=== PATIENT | female | born 1980 | race Caucasian/White ===

== ENCOUNTER 2016-12-21 12:51 | Emergency (ER) | payer MEDICAID ==
[2016-12-21] MEDS ORDERED: LORazepam 2 MG/ML MDV ONE (13:34)
[2016-12-21] MEDS ORDERED: LORazepam 2 MG/ML MDV IM ONE (13:45)
--- NOTE | 2016-12-21 13:54 | EDM.PDOC ---
[id number] 4d ANXIETY ATTACH Time Seen by Provider: 12/21/16 13:15 Source of Information: Reports: Family History Limitations: Reports: Altered mental status, Language barrier - History of Present Illness INITIAL COMMENTS - FREE TEXT/NARRATIVE: 36-year-old female who is having a very significant anxiety attack after her children were at the dentist. She has significant panic attacks and anxiety when around any type of dental procedure. Her boyfriend brought her in and she was hyperventilating and unable to speak. Her vitals were stable. O2 saturations were 100%. Onset: sudden Severity: moderate Associated Symptoms: Reports: shortness of breath, weakness. Denies: cough, nausea/vomiting - Related Data Allergies Allergy/AdvReac Type Severity Reaction Status Date / Time sodium fluoride Allergy Severe Mouth Sores Verified 12/21/16 14:04 Home Meds: Home Meds . [No Known Home Meds] 12/21/16 [History] ED ROS GENERAL - Review of Systems Review Of Systems: Unable To Obtain (Patient was unable to speak due to intense panic) GI/Abdominal: Denies: Nausea, Vomiting Neurological: Reports: No Symptoms Psychiatric: Reports: Anxiety ED EXAM, GENERAL - Physical Exam Exam: See Below Exam Limited By: Altered mental status General Appearance: alert, anxious, moderate distress Respiratory/Chest: no respiratory distress Cardiovascular: regular rate, rhythm, tachycardia Extremities: No: pedal edema Neurological: alert Psychiatric: anxious Skin Exam: Warm, Dry Course - Vital Signs Last Recorded V/S: Last Vital Signs Temp 96.8 F 12/21/16 14:05 Pulse 92 12/21/16 14:05 Resp 16 12/21/16 14:05 BP 95/69 12/21/16 14:05 Pulse Ox 99 12/21/16 14:05 - Orders/Labs/Meds Meds: Medications Discontinued Medications Generic Name Dose Route Start Last Admin Trade Name Freq PRN Reason Stop Dose Admin Lorazepam Confirm 12/21/16 13:34 12/21/16 14:18 Ativan Administered 12/21/16 13:35 Not Given Dose 2 mg .ROUTE .STK-MED ONE Lorazepam 2 mg 12/21/16 13:45 12/21/16 14:15 Ativan IM 12/21/16 13:46 2 mg ONETIME ONE Administration - Re-Assessments/Exams Free Text/Narrative Re-Assessment/Exam: 12/21/16 13:52 2 mg of Ativan IM were given to the patient but even prior to the medication she was already starting to be able to speak. She'll be discharged when she feels well enough to go. Departure - Departure Time of Disposition: 14:19 Disposition: Home, Self-Care 01 Condition: fair Clinical Impression: Acute hyperventilation syndrome Instructions: Panic Attacks Referrals: PCP,None [Primary Care Provider] - Forms: ED Department Discharge Care Plan Goals: Rest today, increase activity as tolerated. Return anytime if you feel you are worsening.
[2016-12-21 14:02] VITALS: BP 95/69
== END 2016-12-21 14:21 | disposition home or self-care (01) ==
LOC: JP.ED 12:51
DX: F45.8 Other somatoform disorders (principal); Z91.09 Other allergy status, other than to drugs and biological substances
CPT/HCPCS: 96372; 99283; J2060

== ENCOUNTER 2025-01-24 05:41 | Emergency (ER) | payer MEDICAID ==
[2025-01-24 06:05] VITALS: BP 124/86; PULSE 85
[2025-01-24] MEDS: Acetaminophen/HYDROcodone 325-5 MG Tab PO ONE (06:22)
[2025-01-24] MEDS: Lidocaine 1% 5 ML VIAL INJECT ONE (06:22)
[2025-01-24] MEDS: cefTRIAXone 1 GM Vial IM ONE (06:22)
== END 2025-01-24 06:57 | disposition home or self-care (01) ==
LOC: JP.ED 05:41
DX: K04.7 Periapical abscess without sinus (principal); F17.200 Nicotine dependence, unspecified, uncomplicated; Z88.8 Allergy status to other drugs, medicaments and biological substances
CPT/HCPCS: 96372; 99282; A9270; J0696; J2003